=== PATIENT | male | born 1950 | race Caucasian/White ===

== ENCOUNTER 2019-08-22 12:35 | Inpatient (IN) | payer MEDICARE, SELFPAY ==
[2019-07-21 10:41] VITALS: BP 165/80; PULSE 65; RESP 18; TEMP 36.6; O2SAT 96; BMI 30.7
[2019-08-22] VITALS (11 sets, daily range): BP systolic 96–133; BP diastolic 58–80; PULSE 54–93; RESP 12–18; TEMP 36.2–36.7; O2SAT 90–98; BMI 30.7
--- NOTE | ~2019-08-22 | XR_ITS ---
EXAMINATION: XR shoulder RT min 2V DATE: 08/22/2019 11:37 INDICATION: Total right shoulder arthroplasty. Postop. TECHNIQUE: 3 views of right shoulder were obtained. COMPARISON: Right shoulder radiographs 06/12/2019 FINDINGS: There is a total right shoulder arthroplasty in near-anatomic alignment. No fracture. There is moderate osteoarthritis of the acromioclavicular joint. IMPRESSION: 1. Total right shoulder arthroplasty in near-anatomic alignment. Reviewed, dictated and finalized at location A. RAL LAB TECHNICIAN
[2019-08-22] MEDS: LACTATED RINGERS 1,000 ML 30 ML IV CONT ×2 (06:55→11:21)
[2019-08-22 07:00] LABS: Glucose Point of Care 109 (65-105)
--- NOTE | 2019-08-22 07:09 | P.PNAN_ITS ---
Anes - Initial Pre Proc Eval Procedure: Operation Date: 08/22/19 07:30 Proposed Procedures p Right Anatomic Total Shoulder Arthroplasty - Roni Ch MD Date/Time: 08/22/19 07:09 Surgeon: Roni Ch MD Pre Op Diagnosis: Right Shoulder OA Patient Data Age: 68 Gender: M Height: 1.75 m Weight: 94.3 kg Last Vital Signs Temp 36.6 C 07/21/19 10:41 Pulse 65 07/21/19 10:41 Resp 18 07/21/19 10:41 BP 165/80 H 07/21/19 10:41 Pulse Ox 96 07/21/19 10:41 Allergies Allergy/AdvReac Type Severity Reaction Status Date / Time amoxicillin Allergy Mild Rash Verified 07/21/19 10:35 Penicillins Allergy Mild Rash Verified 07/21/19 10:35 Sulfa (Sulfonamide Allergy Mild UNKNOWN Unverified 07/21/19 10:35 Antibiotics) Home Medications Medication Instructions Recorded Confirmed Type allopurinol 100 mg tablet 100 mg PO DAILY 06/12/19 08/07/19 History hydrochlorothiazide 12.5 mg capsule 12.5 mg PO DAILY 06/12/19 08/07/19 History metoprolol succinate 25 mg capsule 12.5 mg PO DAILY 06/12/19 08/07/19 History sprinkle, ext. release 24 hr nifedipine 60 mg tablet,extended 60 mg PO DAILY 06/12/19 08/07/19 History release spironolactone 25 mg tablet 25 mg PO DAILY 06/12/19 08/07/19 History trazodone 50 mg tablet 50 mg PO HS 06/12/19 08/07/19 History ascorbic acid (vitamin C) 500 mg PO DAILY 07/21/19 08/07/19 History cetirizine 5 mg PO DAILY 07/21/19 08/07/19 History gabapentin 100 mg PO HS 07/21/19 08/07/19 History lihnemlf-xkb-DF-lycopen-lutein 1 tablet PO DAILY 07/21/19 08/07/19 History [Centrum Silver Men] omega 3-jsx-qys-fish oil [EPA-DHA 1 cap PO DAILY 07/21/19 08/07/19 History 720] Laboratory Tests 08/22/19 06:56 POC Capillary Glucose 109 mg/dl mg/dl (65-105) Patient hx anesthesia problems: none Family hx anesthesia problems: none [facility] Past Medical History Medical History (Updated 08/22/19 @ 07:13 by Abdiel Nunez MD) Asthma CKD (chronic kidney disease) stage 4, GFR 15-29 ml/min Diabetes Gout Obesity SAMRA on CPAP Osteoarthritis of right shoulder Social History Social History Smoking status: Never smoker Alcohol intake: current Gender identity (if verbalized by the patient): Male Anes - Eval Final PreProcedure Day of Procedure 08/22/19 07:09 Patient weight: obese Heart: regular rate and rhythm Lungs: clear to auscultation and normal air movement Airway: Mallampati scale class II Neurological: alert and oriented Last oral intake: >/= 8 hours ASA classification: III Emergent: no Anesthetic plan: proceed Anesthesia type and monitoring: general LMA and ETT Informed Consent: The patient's anesthetic plan and its attendant risks and benefits were discussed with the patient/family/POA. Questions were solicited and answers provided to the satisfaction of the patient/family/POA.
--- NOTE | 2019-08-22 07:14 | WPDANESPNB ---
Anes - Peripheral Nerve Block Date/Time: 08/22/19 07:14 I have discussed with the patient/family/POA the placement of a peripheral nerve block for post-operative pain management, including associated risks, benefits, complications, and side effects. Alternative methods of post-operative analgesia were detailed. Questions were solicited and answers provided to the satisfaction of the patient/family/POA. Time-Out: A pre-procedural Time-Out was completed immediately before starting the procedure and confirmed: Patient Identification, Site, Procedure, Patient Position and the Availability of Requisite Equipment. Clinical Indications: Acute post-operative pain management requested by the operative surgeon. Nerve Block Insertion Note Anes-nerve block: supraclavicular right Patient position: supine Skin prep: chlorhexidine Needle: 22 gauge, stimulating, insulated echogenic needle. Needle length: 80 mm Technique: ultrasound (in plane) Injectate: bupivacaine 0.5% with epi 5 mcg/ml (20cc) Observations: tolerated well Complications: none Procedure start time:: 725 Procedure end time:: 730
--- NOTE | 2019-08-22 07:20 | WPDHPUPDATE1 ---
History and Physical Update Update Date/Time: 08/22/19 07:20 History and Physical has been reviewed, including an updated exam of the patient. There are NO changes in the patient's condition. Risks, benefits, and alternatives have been discussed and questions answered. Patient agrees to proceed with procedure.
[2019-08-22] MEDS: ceFAZolin 2 GM/D5W 50 ML 2 GM/50 ML BAG IVPB (07:34)
[2019-08-22] MEDS: HYDROGEN PEROXIDE 3% SOLN(*SP) 473 ML BOTTLE 50 ML IRRIGATION (10:47)
[2019-08-22 11:43] LABS: Glucose Point of Care 196 (65-105)
--- NOTE | 2019-08-22 11:58 | PM.PROC ---
Procedure Note - Detailed Date of procedure: 08/22/19 Pre-op diagnosis: Right Shoulder OA Post-op diagnosis: same Procedure performed: Right anatomic total shoulder arthroplasty. Lesser tuberosity osteotomy. Biceps tenodesis. Description of procedure: Simplicity stemless implant. Lesser tuberosity osteotomy and osteotomy repair. Biceps tenodesis. Implants: [employer] Simpliciti humeral nucleus size 3, and head size 52 x 21 Shoulder Innovations, Glenoid circular in-line peg 24 x 6 millimeter glenoid component. Anesthesia: GETA Surgeon: Roni Ch MD Estimated blood loss (mL): 100 Pathology: none sent Complications: No immediate complications Condition: stable Disposition: PACU Findings: The patient was given an interscalene block in the preoperative area. Preoperative antibiotics were given. The patient was transferred to the operating room and a general anesthetic was administered. The beach chair position was used at 40 degrees. All bony prominences were padded. The head was carefully stabilized on the Grajeda heading and priming tool setter. A sterile prep and drape was performed in the usual manner with Chloraprep. A longitudinal incision was created at the anterior shoulder just lateral to the deltopectoral interval. Careful dissection was performed to expose the interval and protect the cephalic vein. The vein required suture ligation. The upper border of the pectoralis was released. There was an anomalous muscle running from proximal to distal over the front of the distal subscapularis tendon. It was over the area where typically the 3 sisters would be found. It required transection. The biceps was tenodesed. A lesser tuberosity osteotomy was performed after opening the joint capsule at the rotator interval. The dimensions of the bone were carefully considered. A 1 inch straight osteotome was used to start the osteotomy. It was finished with a curved osteotome. It was tagged for later repair. The inferior capsule was released, exposing the humeral head. Osteophytes were removed. Care was taken to stay on bone to protect the axillary nerve. The anatomic head cut was taken with the oscillating saw. The trials were use to assess the appropriate size implant. The center guide pin was placed and the planer used, followed by the 1st drill. The Blaze was inserted. The cut protector was placed, and attention was turned to the glenoid. Retractors were placed. Releases were carried out for exposure. The subscapularis was mobilized, the inferior capsule and long head of triceps released, and the superior and middle glenohumeral ligaments released as well. Labral tissue was resected. The sizing template was used and a guide pin was placed. Approximately 5 degreesdeformity correction was performed]. The reamer was placed over the guide pin taken down to create a 2-4 millimeter wall. The peg drill guide was applied and the pegs drilled. The trial component was placed and fit very nicely. Excellent stability was confirmed. The real component was cemented into position. Excess cement was carefully removed. The humerus was prepared for subscapularis repair with the drilling and passage of 4 suture leaders. The trial was checked for proper soft tissue balance, then the real humeral nucleus and head were impacted into position. The shoulder was copiously irrigated periodically with pulsatile lavage. The shoulder was reduced and the subscapularis repaired with number 5 Ethibond suture modified Martin-Phill sutures, #2 suture tape, and reinforced with number 2 Ethibond suture. The rotator interval was reapproximated distally. The pectoralis tendon was repaired using #2 Ethibond suture. The deltopectoral space was reapproximated with 2-0 Vicryl. The remaining tissue was closed with 0 Quill and 2-0 Quill running suture and steri-strips. A sterile dressing and shoulder immobilizer was placed. The patient was transferred to the recovery room.
--- NOTE | 2019-08-22 12:17 | SUR.PHASEI ---
5701 sbar faxed to floor. family updated and sent to room
--- NOTE | 2019-08-22 12:43 | ADMGEN ---
This patient, Sundeep Coy, was admitted to [facility] Surg Room 309-01. Patient/family oriented to hospital policies and general routines including ID bracelet, bed and alarms, visiting hours, pain management, procedures, bathroom and other care routines, personal items, smoking policy, room service/diet, and visiting hours. Valuables list has been completed. Information on how to activate the Rapid Response Team has been discussed. Patient/Family are encouraged to report perceived risks to care and to ask questions if they do not understand what they are told or what they should do.
--- NOTE | 2019-08-22 14:18 | SUR.PHASEI ---
1130 radiology at bedside to do xray
[2019-08-22] MEDS: DOCUSATE SODIUM 100 MG CAPSULE PO (17:55)
[2019-08-22] MEDS: GABAPENTIN 100 MG CAPSULE PO (20:03)
[2019-08-22] MEDS: TRAZODONE HCL 50 MG TABLET PO (20:03)
[2019-08-22 23:28] LABS: Glucose Point of Care 162 (65-105)
[2019-08-23 02:00] VITALS: BP 132/64; PULSE 72; RESP 18; TEMP 36.9; O2SAT 97
--- NOTE | 2019-08-23 02:23 | PM.IMCN ---
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 I have placed orders for sliding scale insulin and Accu-Cheks. And the patient's diet has been changed to consistent carbohydrate diet. He is afraid to take the glimepiride that he was recently started on if his creatinine is above his baseline of 2.4 I have tried to reassure the patient that if his creatinine is stable he should be able to continue his once daily glimepiride at least until he sees a mechanical manufacturing technician. (3) CKD (chronic kidney disease) stage 4, GFR 15-29 ml/min: Code(s): N18.4 - Chronic kidney disease, stage 4 (severe) Status: Acute Assessment and Plan: Continue to avoid nephrotoxic medications.Check BMP in a.m.. The patient reports that his preop creatinine was higher than baseline. Will repeat a BMP in a.m.. If the patient's creatinine is at her near baseline have told him he can continue glimepiride. HPI Data of Consult Consult date: 08/23/19 Requesting Physician: Roni Ch MD Primary Care Provider: Shaun Parham, Consult Narrative Narrative: Date and time of patient contact: 08/23/2019 at 3:10 a.m. Sundeep Coy is a 68 year old male with a past medical history of asthma, type 2 diabetes mellitus and stage 4 chronic kidney disease who presented to the hospital for planned right anatomic shoulder arthroplasty performed by Dr. Roni Ch. Patient underwent shoulder surgery on 08/22/2019 without difficulty. He received general endotracheal anesthesia and a peripheral nerve block. The patient had aching and throbbing severe right shoulder pain that was interfering with his activities of daily lifting. He is having difficulty reaching for objects and was having difficulty sleeping. He had been struggling with pain in the shoulder for 20 years. He reports that his pain is currently manageable. He reports the nerve block seems to have worn off. He only took half of his glimepiride dose the night prior to surgery. His glucose this evening was 162. He states his hemoglobin A1c is been a little bit over 7 for the last 2 lab draws. 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 But his primary doctor started him on glimepiride recently. He was prescribed glimepiride 1 tablet p.o. b.i.d. but he has only been taking it daily. With admit taking it daily his fasting glucose has been 90. His chronic kidney disease was due to uncontrolled hypertension that is now well controlled since he was initiated on spironolactone. He reports that his baseline creatinine is 2.4. The value of 2.7 on July 21 is higher than what he would expect. However he states it is possible that he may have been a little bit dehydrated on the day of the lab draw. He denies any dysuria or changes in urinary frequency. Does have intermittent constipation. He had a bowel movement before coming to the hospital. He has not had any nausea following surgery. He anticipates going home today. The patient reports he has had a mild cough since surgery but it is a dry cough. He states that his throat is a little bit irritated. He does have mild asthma but do
[2019-08-23 05:58] VITALS: BP 146/74; PULSE 74; RESP 18; TEMP 36.8; O2SAT 95
[2019-08-23 06:20] LABS: Blood Urea Nitrogen 43 mg/dL (9-20); Calcium 9.1 mg/dL (8.4-10.2); Carbon Dioxide 23 mmol/L (22-30); Chloride 103 mmol/L (98-107); Estimated CRCL calculation 27 ml/min; Estimated Glomerular Filt Rate 24; Glucose 108 mg/dL (75-110); Potassium 4.1 mmol/L (3.4-5.0); Sodium 138 mmol/L (137-145)
[2019-08-23] MEDS: GLIMEPIRIDE 1 MG TABLET PO (08:05)
[2019-08-23 08:07] LABS: Glucose Point of Care 104 (65-105)
[2019-08-23] MEDS: NIFEdipine 30 MG TAB.ER.24 60 MG PO (08:07)
[2019-08-23] MEDS: allopurinoL 100 MG TABLET PO (08:08)
[2019-08-23] MEDS: OPTI-GEN TAB 1 TABLET PO (08:08)
[2019-08-23] MEDS: ASCORBIC ACID 500 MG TABLET PO (08:09)
[2019-08-23] MEDS: SPIRONOLACTONE 25 MG TABLET PO (08:09)
[2019-08-23 08:10] VITALS: PULSE 78
[2019-08-23] MEDS: hydroCHLOROthiazide 12.5 MG CAPSULE PO (08:10)
[2019-08-23] MEDS: METOPROLOL SUCCINATE EXT REL 12.5 MG TABCR PO (08:10)
[2019-08-23] MEDS: DOCUSATE SODIUM 100 MG CAPSULE PO (08:10)
[2019-08-23 10:04] VITALS: O2SAT 95
[2019-08-23 12:01] LABS: Glucose Point of Care 107 (65-105)
--- NOTE | 2019-08-23 13:13 | PM.DS ---
DS: Diagnosis Admitting Diagnosis Admitting Diagnosis: Primary osteoarthritis, right shoulder Discharge Diagnosis (1) Status post total replacement of right shoulder: Code(s): Z96.611 - Presence of right artificial shoulder joint Status: Acute DS: Summary Hospital Course Reason for hospitalization: Anatomic total shoulder arthroplasty. Hospital Course: Tolerated surgery well. Progressed appropriately with therapy. Status at Discharge Functional status at discharge: independent ambulation Time Spent with Patient Time attestation: Total time spent providing and/or coordinating discharge services: Time spent: Less than 30 minutes Exam Const: General: no acute distress Resp: Effort & Inspection: normal respiratory effort Skin: Other: Wound healing well. Mepilex dressing intact. No hematoma or drainage. Neuro: Motor exam (neuro): 5/5 motor strength present throughout Sensory Exam: normal sensation Psych: Mental Status: mental status grossly normal Speech and movement: Normal speech and movement present DS: Data Data Completed and Pending Labs on day of discharge: Labs from last 24 hours 08/23/19 08/23/19 08/23/19 11:55 07:59 05:20 Sodium 138 Potassium 4.1 Chloride 103 Carbon Dioxide 23 BUN 43 H Creatinine 2.70 H Estim Creat Clear Calc 27 Estimated GFR 24 L Glucose 108 POC Capillary Glucose 107 104 Calcium 9.1 08/22/19 23:07 Sodium Potassium Chloride Carbon Dioxide BUN Creatinine Estim Creat Clear Calc Estimated GFR Glucose POC Capillary Glucose 162 H Calcium Discharge Plan Discharge Attending physician on discharge: Roni Ch Consulting providers: Lucy De La Torre Discharging Clinician: Roni Ch Patient Disposition: Home, Self-Care Activity: october shower Diet: as tolerated Wound Care Instructions: follow printed instructions Discharge Instructions: See instruction sheet. Patient Instructions: Antibiotic Form, Pain Management (DC), Shoulder Arthroplasty (DC) Stand Alone Forms: General Discharge Information Follow-up/Referrals: Roni Ch MD [Physician] - Discharge Medications: New oxycodone-acetaminophen 5-325 mg tablet 1 - 2 tablet PO Q4-6H MDD 8 tablets PRN (Reason: pain) Qty: 40 RF: 0 Continued trazodone 50 mg tablet 50 mg PO HS RF: 0 allopurinol 100 mg tablet 100 mg PO DAILY RF: 0 hydrochlorothiazide 12.5 mg capsule 12.5 mg PO DAILY RF: 0 metoprolol succinate 25 mg capsule,sprinkle,ER 24hr 12.5 mg PO DAILY RF: 0 nifedipine 60 mg tablet extended release 60 mg PO DAILY RF: 0 spironolactone 25 mg tablet 25 mg PO DAILY RF: 0 cetirizine 10 mg Tablet 10 mg PO DAILY PRN (Reason: Allergy Symptoms) RF: 0 gabapentin 100 mg Capsule 300 mg PO HS RF: 0 ascorbic acid (vitamin C) 500 mg Tablet 500 mg PO DAILY RF: 0 EPA-DHA 720 290-430-1.4 mg-mg-gram Capsule 1 cap PO DAILY RF: 0 Centrum Silver Men 300-600-300 mcg Tablet 1 tablet PO DAILY RF: 0 glimepiride 1 mg Tablet 1 mg PO DAILY RF: 0 Date of admission: 08/22/19 12:35 Primary Care Provider: Dione,Shaun Long Admitting Provider: Roni Ch Attending physician on admission: Roni Ch
--- NOTE | 2019-08-23 13:56 | WPDANESPN ---
Anes - Prog Note Post-Op Date/Time: 08/23/19 13:56 Cardiovascular status: normal Respiratory status: normal Airway patency: baseline Mental status: baseline Post-Op hydration status: normal Vital Signs: Last Vital Signs Temp 36.8 C 08/23/19 05:58 Pulse 78 08/23/19 08:10 Resp 18 08/23/19 05:58 BP 146/74 H 08/23/19 05:58 Pulse Ox 95 08/23/19 10:04 Pain Score (VAS): 0/10. Patient resting in bedside chair at time of assessment, appears comfortable. Support person at bedside. I/O: Intake & Output 08/22/19 08/23/19 08/23/19 23:59 07:59 15:59 Intake Total 490 400 600 Output Total 900 Balance 490 -500 600 Laboratory Tests 08/23/19 05:20 08/22/19 08/23/19 08/23/19 23:07 05:20 07:59 Sodium 138 Potassium 4.1 Chloride 103 Carbon Dioxide 23 BUN 43 H Creatinine 2.70 H Estim Creat Clear Calc 27 Estimated GFR 24 L Glucose 108 POC Capillary Glucose 162 H 104 Calcium 9.1 08/23/19 11:55 Sodium Potassium Chloride Carbon Dioxide BUN Creatinine Estim Creat Clear Calc Estimated GFR Glucose POC Capillary Glucose 107 Calcium Post-procedural complaints: none Patient Feedback: Patient satisfied with anesthetic care.
== END 2019-08-23 14:40 | disposition home or self-care (01) | DRG 483 ==
LOC: ANH3MEDSUR 12:38
PROVIDERS: Internal Medicine; Admitting Provider Orthopaedic Surgery; PCP Internal Medicine; Visit Provider Orthopaedic Surgery
PROC: 0RRJ0JZ Replacement of Right Shoulder Joint with Synthetic Substitute, Open Approach (ICD-10-PCS; CPT 23472; principal; 2019-08-22 07:30)
DX: M19.011 Primary osteoarthritis, right shoulder (principal); N18.4 Chronic kidney disease, stage 4 (severe); Z28.21 Immunization not carried out because of patient refusal; E66.9 Obesity, unspecified; E11.22 Type 2 diabetes mellitus with diabetic chronic kidney disease; J45.909 Unspecified asthma, uncomplicated; E11.36 Type 2 diabetes mellitus with diabetic cataract; H26.9 Unspecified cataract; Z68.30 Body mass index [BMI] 30.0-30.9, adult; E78.2 Mixed hyperlipidemia; M10.9 Gout, unspecified; G47.33 Obstructive sleep apnea (adult) (pediatric); L80 Vitiligo
CPT/HCPCS: 36415; 73030; 80048; 86850; 86900; 86901; 97110; 97116; 97161; 97165; A4565; A9270; C1713; C1776; J0131; J0171; J0690; J1100; J1885; J2250; J2270; J2405; J2704; J2795; J3010; J7120

== ENCOUNTER 2020-05-03 00:45 | Outpatient (CLI) | payer MEDICARE, SELFPAY ==
[2020-05-03 20:27] LABS: SARS-CoV-2 RNA PCR Negative
== END 2020-05-03 00:46 | disposition home or self-care (01) ==
LOC: ANHCOVIDDT 00:45
PROVIDERS: PCP Internal Medicine; Visit Provider Internal Medicine Gastroenterology
DX: Z01.812 Encounter for preprocedural laboratory examination (principal); Z20.828 Contact with and (suspected) exposure to other viral communicable diseases
CPT/HCPCS: 87635; C9803; U0003

== ENCOUNTER 2020-05-06 01:09 | Day surgery (SDC) | payer MEDICARE, SELFPAY ==
[2020-04-30 11:20] VITALS: BMI 30.2
--- NOTE | 2020-05-06 09:53 | WPDGICN ---
Assessment and Plan Assessment and plan (1) Encounter for screening colonoscopy: Code(s): Z12.11 - Encounter for screening for malignant neoplasm of colon Status: Acute Assessment and Plan: Screening colonoscopy will be performed because of patient's age. Further recommendations subsequently. (2) Epigastric abdominal pain: Code(s): R10.13 - Epigastric pain Status: Acute Assessment and Plan: Because of patient's epigastric pain plan is to continue proton pump inhibitor. [place] diet is advised. An EGD will be performed. GI Consult Note Consult date/time: 05/06/20 09:53 HPI: Sundeep Coy is a 69 year old male Seen in evaluation at the request of Dr. Parham. patient presents for neoplasia screening. He states he has soft stools occasionally normal denies any pain or bleeding. His family history is Noncontributory. Patient also complains of epigastric pain described as burning pain not related to diet. Somewhat better with antacids. He has noticed some improvement since starting Prilosec 20 mg p.o. daily over the last 2-3 weeks. He denies any weight loss or dysphagia. He desires evaluation with EGD. Review of Systems Review of Systems: All systems reviewed & are unremarkable except as noted in HPI and below PMFSH Past Medical History Medical History (Updated 05/06/20 @ 09:55 by Deshawn Romero MD) Asthma Cataracts, bilateral CKD (chronic kidney disease) stage 4, GFR 15-29 ml/min Diabetes Essential (primary) hypertension Gout Mixed hyperlipidemia Obesity SAMRA on CPAP Osteoarthritis of right shoulder Vitiligo Surgical History Surgical History (Updated 02/07/20 @ 13:19 by ROS Encinas) History of lithotripsy Status post total replacement of right shoulder (~08/22/19) Anatomic Family History Family History (Updated 08/23/19 @ 04:18 by Kiki Chavez DO) Father Hypertension Dementia Parkinsons disease TIA (transient ischemic attack) Stomach ulcer Sibling Breast cancer Sister and maternal aunt Other Carcinoma of colon Uncle with colon cancer Social History Social History (Updated 08/23/19 @ 04:17 by Kiki Chavez DO) Social History: Primary care physician: Dr. 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 release 24 hr nifedipine 60 mg tablet,extended 60 mg PO DAILY 06/12/19 04/30/20 History release spironolactone 25 mg tablet 25 mg PO DAILY 06/12/19 04/30/20 History trazodone 50 mg tablet 50 mg PO HS 06/12/19 04/30/20 History Centrum Silver Men 1 tablet PO DAILY 07/21/19 04/30/20 History ascorbic acid (vitamin C) 500 mg PO DAILY 07/21/19 04/30/20 History cetirizine 10 mg PO DAILY 07/21/19 04/30/20 History gabapentin 300 mg PO HS 07/21/19 04/30/20 History glimepiride 0.5 mg PO DAILY 08/22/19 04/30/20 History cholecalciferol (vitamin D3) 125 mcg PO DAILY 04/30/20 04/30/20 History [Vitamin D3] levothyroxine 75 mcg PO DAILY 04/30/20 04/30/20 History omeprazole 20 mg PO HS 04/30/20 04/30/20 History Allergies Allergy/AdvReac Type Severity Reaction Status Date / Time ampicillin Allergy Intermediate Rash Verified 04/30/20 11:46 Penicillins Allergy Intermediate Rash Verified 04/30/20 11:46 Ex
[2020-05-06 09:54] LABS: Glucose Point of Care 103 (65-105)
[2020-05-06] MEDS: LACTATED RINGERS 1,000 ML 150 ML IV CONT (09:57)
[2020-05-06 10:00] VITALS: BP 173/74; PULSE 68; RESP 18; TEMP 36.8; O2SAT 97; BMI 30.7
--- NOTE | 2020-05-06 11:04 | WPDANESEPPF ---
Anes - Initial Pre Proc Eval Procedure: Operation Date: 05/06/20 10:30 Proposed Procedures p Esophagogastroduodenoscopy & Colonoscopy - Deshawn Romero MD Date/Time: 05/06/20 11:04 Surgeon: Deshawn Romero MD Pre Op Diagnosis: Diarrhea/ Epigastric Pain Patient Data Age: 69 Gender: M Height: 5 ft 9 in Weight: 94.3 kg Last Vital Signs Temp 36.8 C 05/06/20 10:00 Pulse 68 05/06/20 10:00 Resp 18 05/06/20 10:00 BP 173/74 H 05/06/20 10:00 Pulse Ox 97 05/06/20 10:00 Allergies Allergy/AdvReac Type Severity Reaction Status Date / Time ampicillin Allergy Intermediate Rash Verified 04/30/20 11:46 Penicillins Allergy Intermediate Rash Verified 04/30/20 11:46 Home Medications Medication Instructions Recorded Confirmed Type allopurinol 100 mg tablet 100 mg PO DAILY 06/12/19 04/30/20 History hydrochlorothiazide 12.5 mg capsule 12.5 mg PO DAILY 06/12/19 04/30/20 History metoprolol succinate 25 mg capsule 25 mg PO DAILY 06/12/19 04/30/20 History sprinkle, ext. release 24 hr nifedipine 60 mg tablet,extended 60 mg PO DAILY 06/12/19 04/30/20 History release spironolactone 25 mg tablet 25 mg PO DAILY 06/12/19 04/30/20 History trazodone 50 mg tablet 50 mg PO HS 06/12/19 04/30/20 History Centrum Silver Men 1 tablet PO DAILY 07/21/19 04/30/20 History ascorbic acid (vitamin C) 500 mg PO DAILY 07/21/19 04/30/20 History cetirizine 10 mg PO DAILY 07/21/19 04/30/20 History gabapentin 300 mg PO HS 07/21/19 04/30/20 History glimepiride 0.5 mg PO DAILY 08/22/19 04/30/20 History cholecalciferol (vitamin D3) 125 mcg PO DAILY 04/30/20 04/30/20 History [Vitamin D3] levothyroxine 75 mcg PO DAILY 04/30/20 04/30/20 History omeprazole 20 mg PO HS 04/30/20 04/30/20 History Laboratory Tests 05/06/20 09:52 POC Capillary Glucose 103 mg/dl mg/dl (65-105) Patient hx anesthesia problems: post op nausea/vomiting Family hx anesthesia problems: none PMFSH Past Medical History Medical History Asthma Cataracts, bilateral CKD (chronic kidney disease) stage 4, GFR 15-29 ml/min Diabetes Essential (primary) hypertension Gout Mixed hyperlipidemia Obesity SAMRA on CPAP Osteoarthritis of right shoulder Vitiligo Surgical History Surgical History History of lithotripsy Status post total replacement of right shoulder (~08/22/19) Anatomic Family History Family History Father Hypertension Dementia Parkinsons disease TIA (transient ischemic attack) Stomach ulcer Sibling Breast cancer Sister and maternal aunt Other Carcinoma of colon Uncle with colon cancer Social History Social History Social History: Primary care physician: Dr. 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 Gender identity (if verbalized by the patient): Male Spiritual care concerns: No Agree to blood products: Yes Anes - Eval Final PreProcedure Day of Procedure 05/06/20 11:04 Patient weight: obese Heart: regular rate and rhythm Lungs: clear to auscultation Airway: Mallampati scale class II Neurological: alert and oriented Last oral intake: >/= 8 hours ASA classification: III Emergent: no Anesthetic plan: proceed Anesthesia type and monitoring: general GIVS and standard monitoring Informed Consent: The patient's anesthetic plan and its attendant risks and benefits were discussed with the patient/family/POA. Questions were solicited and answers provided to the satisfaction of the patient/family/POA.
[2020-05-06 11:26] VITALS: BP 131/72; PULSE 56; RESP 18; O2SAT 98
[2020-05-06 11:36] VITALS: BP 126/67; PULSE 61; RESP 26; O2SAT 98
--- NOTE | 2020-05-06 11:41 | SUR.OPER ---
EGD START 1109, END 1111 COLONOSCOPY START 1115, END 1124
[2020-05-06 11:56] VITALS: BP 146/74; PULSE 61; RESP 26; O2SAT 98
== END 2020-05-06 12:19 | disposition home or self-care (01) ==
PROVIDERS: PCP Internal Medicine; Visit Provider Internal Medicine Gastroenterology
PROC: 0DJ08ZZ Inspection of Upper Intestinal Tract, Via Natural or Artificial Opening Endoscopic (ICD-10-PCS; CPT 43235; principal; 2020-05-06 10:30)
DX: Z12.11 Encounter for screening for malignant neoplasm of colon (principal); R10.13 Epigastric pain; I12.9 Hypertensive chronic kidney disease with stage 1 through stage 4 chronic kidney disease, or unspecified chronic kidney disease; E11.22 Type 2 diabetes mellitus with diabetic chronic kidney disease; N18.4 Chronic kidney disease, stage 4 (severe); J45.909 Unspecified asthma, uncomplicated; E78.5 Hyperlipidemia, unspecified; M10.9 Gout, unspecified; E66.9 Obesity, unspecified; L80 Vitiligo; Z96.611 Presence of right artificial shoulder joint; Q39.4 Esophageal web; K64.8 Other hemorrhoids
CPT/HCPCS: 43239; 43450; G0121; 87081; J2704; J3370; J7120

== ENCOUNTER → 2021-05-09 03:46 | Outpatient (CLI) | payer MEDICARE, SELFPAY ==
[2021-05-09 18:10] LABS: SARS-CoV-2 RNA PCR Positive
== END ==
PROVIDERS: PCP Internal Medicine; Visit Provider Internal Medicine
DX: U07.1 COVID-19 (principal)
CPT/HCPCS: C9803; U0003; U0005

== ENCOUNTER 2023-06-25 07:30 | Outpatient (CLI) | payer MEDICARE, SELFPAY ==
--- NOTE | ~2023-06-25 | MR_ITS ---
EXAMINATION: MR MRCP wo/w con/w 3D wo ind DATE: 06/25/2023 09:03 INDICATION: Follow-up pancreatic masses TECHNIQUE: Magnetic resonance imaging (MRI) of the abdomen was performed without and with intravenous contrast. Sequences included coronal T2-weighted SS-FSE ARC, coronal T2-weighted FS SS-FSE, coronal T2-weighted 2D FS FIESTA, Water:Coronal LAVA-Flex, sagittal T2-weighted SS-FSE ARC, axial SSFSE ARC, axial 3D DualEcho, axial DWI B=600, axial T1-weighted LAVA, FAT:Coronal LAVA-Flex, and coronal in and opposed phase LAVA-Flex. Thick-slab T2-weighted FRFSE-XL images were obtained for magnetic resonance cholangiopancreatography (MRCP). Maximum intensity projection 3-D reconstructions of the volumetric data were created by the technologist. Postcontrast sequences included a time course of axial T1-weig hted LAVA, FAT:Coronal LAVA-Flex, coronal in and opposed phase LAVA-Flex, and Water:Coronal LAVA-Flex . COMPARISON: None. CONTRAST: Multihance, 16 cc FINDINGS: ABDOMEN MRI: The liver, spleen, and adrenal glands are normal. There is moderate atrophy of the kidne ys. There appears to be a small amount of debris in the gallbladder. There is a 2.1 x 2.0 cm cystic l esion in the uncinate process of the pancreas which contains multiple thin internal septations. No ab normal internal enhancement is identified. There is a 1.5 cm cystic lesion in the head of the pancrea s with thin internal septations and no definite abnormal enhancement after contrast administration. T here is a 1.9 cm simple cystic lesion in the body of the pancreas which appears to connect to the mauricio n pancreatic duct. There is a smaller adjacent 6 mm cystic lesion in the body of the pancreas without definite communication with the main pancreatic duct. There is a 7 mm cystic lesion in the tail of t he pancreas without definite communication with the main pancreatic duct. There are no pathologically enlarged abdominal lymph nodes. A right pelvic transplant kidney is noted. There are no dilated loop s of bowel. ABDOMEN MRCP: The pancreatic duct is normal in course and caliber. No intrahepatic or extrahepatic bi liary dilatation. No stones or stricture of the common bile duct are identified. IMPRESSION: 1. Multiple cystic lesions of the pancreas as described above. The differential diagnosis includes ps eudocyst, intraductal papillary mucinous neoplasm (IPMN), mucinous cystic neoplasm (MCN), and the les s common serous cystadenoma and neuroendocrine tumor. Correlate for history of pancreatitis. Comparis on with any available prior imaging would be helpful to determine stability. Based on this study jesus zambrano, EUS/FNA would be recommended for the lesion in the uncinate process. Reviewed, dictated and finalized at location B. ITATIVE RESEARCHER IMPRESSION: 1. Multiple cystic lesions of the pancreas as described above. The differential diagnosis includes pseudocyst, intraductal papillary mucinous neoplasm (IPMN), mucinous cystic neoplasm (MCN), and the less common serous cystadenoma and columba roendocrine tumor. Correlate for history of pancreatitis. Comparison with any a vailable prior imaging would be helpful to determine stability. Based on this s tudy alone, EUS/FNA would be recommended for the lesion in the uncinate process .
== END 2023-06-25 07:31 | disposition home or self-care (01) ==
PROVIDERS: PCP Internal Medicine; Visit Provider Nurse Practitioner
DX: K86.2 Cyst of pancreas (principal); R74.8 Abnormal levels of other serum enzymes
CPT/HCPCS: 74183; 76376; A9577

== ENCOUNTER 2023-07-21 02:14 | Day surgery (SDC) | payer MEDICARE, SELFPAY ==
[2023-06-30 09:12] VITALS: BMI 26.2
--- NOTE | 2023-07-19 09:44 | SUR.PREOP ---
Patient called regarding upcoming procedure. Message left on pt's voicemail regarding appointment times.
[2023-07-21 07:31] VITALS: BP 145/72; PULSE 56; RESP 18; TEMP 36.3; O2SAT 98
[2023-07-21] MEDS: LACTATED RINGERS 1,000 ML 150 ML IV CONT (07:41)
[2023-07-21 07:46] LABS: Glucose Point of Care 125 mg/dl (65-105)
--- NOTE | 2023-07-21 07:49 | WPDANESEPPF ---
Anes - Initial Pre Proc Eval Procedure: Operation Date: 07/21/23 08:30 Proposed Procedures p Esophagogastroduodenoscopy - Gutierrez Gan MD Date/Time: 07/21/23 07:49 Surgeon: Gutierrez Gan MD Pre Op Diagnosis: epigastric pain, anorexia Patient Data Age: 72 Gender: M Height: 1.75 m Weight: 84 kg Last Vital Signs Temp 97.3 F L 07/21/23 07:31 Pulse 56 L 07/21/23 07:31 Resp 18 07/21/23 07:31 BP 145/72 H 07/21/23 07:31 Pulse Ox 98 07/21/23 07:31 O2 Del Method Room Air 07/21/23 07:31 Allergies Allergy/AdvReac Type Severity Reaction Status Date / Time ampicillin Allergy Intermediate Rash Verified 07/21/23 07:30 Penicillins Allergy Intermediate Rash Verified 07/21/23 07:30 Home Medications Medication Instructions Recorded Confirmed Type metoprolol succinate 25 mg capsule 25 mg PO DAILY 06/12/19 06/30/23 History sprinkle, ext. release 24 hr nifedipine 60 mg tablet,extended 60 mg PO DAILY 06/12/19 06/30/23 History release trazodone 50 mg tablet 50 mg PO HS 06/12/19 06/30/23 History ascorbic acid (vitamin C) 500 mg 500 mg PO DAILY 07/21/19 06/30/23 History tablet cetirizine 10 mg tablet 10 mg PO DAILY 07/21/19 06/30/23 History [id number] 300 mcg-K 60 1 tablet PO DAILY 07/21/19 06/30/23 History mcg-lycop 600 mcg-lutein 300 mcg tablet (Centrum Silver Men) cholecalciferol (vitamin D3) 125 125 mcg PO DAILY 04/30/20 06/30/23 History mcg (5,000 unit) tablet (Vitamin D3) levothyroxine 75 mcg tablet 75 mcg PO DAILY 04/30/20 06/30/23 History aspirin 81 mg tablet,delayed 81 mg PO DAILY 06/30/23 06/30/23 History release atorvastatin 20 mg tablet 20 mg PO DAILY 06/30/23 06/30/23 History pantoprazole 40 mg tablet,delayed 40 mg PO DAILY 06/30/23 06/30/23 History release prednisone 5 mg tablet 5 mg PO DAILY 06/30/23 06/30/23 History tacrolimus 0.75 mg tablet,extended 0.75 mg PO DAILY 06/30/23 07/21/23 History release 24 hr (Envarsus XR) tamsulosin 0.4 mg capsule 0.4 mg PO DAILY 06/30/23 06/30/23 History valganciclovir 450 mg tablet 450 mg PO DAILY 06/30/23 06/30/23 History (Valcyte) Laboratory Tests 07/21/23 07:40 POC Capillary Glucose 125 H mg/dl (65-105) Patient hx anesthesia problems: none Family hx anesthesia problems: none Results Review: All pre-operative results and documents have been reviewed as part of the pre-operative evaluation. [facility] Past Medical History Medical History (Updated 06/29/23 @ 08:22 by Dorcas Rosales APRN) Aortic stenosis Asthma Atrophy of liver Cataracts, bilateral CKD (chronic kidney disease) stage 4, GFR 15-29 ml/min Decreased appetite Diabetes Elevated liver enzymes Essential (primary) hypertension Gallstones Gout Hx of duodenal ulcer IPMN (intraductal papillary mucinous neoplasm) Mixed hyperlipidemia Obesity SAMRA on CPAP Osteoarthritis of right shoulder Pancreas cyst Pancreatic lesion Thrombocytopenia Vitiligo Surgical History Surgical History (Updated 06/10/23 @ 16:24 by Dorcas Rosales APRN) History of lithotripsy Kidney transplant recipient Status post total replacement of right shoulder (~08/22/19) Anatomic Family History Family History Father Hypertension Dementia Parkinsons disease TIA (transient ischemic attack) Stomach ulcer Sibling Breast cancer Sister and maternal aunt Other Carcinoma of colon Uncle with colon cancer Social History Social History Social History: Primary care physician: Dr. 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
--- NOTE | 2023-07-21 08:10 | PM.HPGS ---
History of Present Illness History of Present Illness Consent: Risks, benefits, and alternatives have been discussed and questions answered. Patient agrees to proceed with procedure. Chief complaint: epigastric pain, anorexia Narrative: Sundeep Coy is a 72 year old male here for egd, had intermittent epigastric pain, using pantoprazole- history of duodenal ulcer and previous kidney transplant. Recent MRCP showed pancreatic cyst and he is to get EUS at [facility] soon Review of Systems Constitutional: Constitutional: Denies headache(s) and Denies weakness Eyes: Eyes: Denies blurry vision ENT: Reports Normal hearing present, Denies headache(s) and Denies neck pain Cardiovascular: Cardiovascular: Denies chest pain and Denies dyspnea Respiratory: Respiratory: Denies dyspnea Gastrointestinal: Gastrointestinal: Reports no additional gastrointestinal complaints Genitourinary: Genitourinary: Denies dysuria Musculoskeletal: Musculoskeletal: Denies neck pain Integumentary/Breasts: Skin/Breast: Denies dry skin Neurologic: Reports Normal hearing present, Denies headache(s) and Denies weakness Psychiatric: Psychiatric: Denies anxiety Endocrine: Endocrine: Denies change in body appearance Hematologic/Lymphatic: Hematologic/Lymphatic: Denies easy bleeding Allergic/Immunologic: Allergic/Immunologic: Denies urticaria PMFSH Past Medical History Medical History (Updated 06/29/23 @ 08:22 by Dorcas Rosales APRN) Aortic stenosis Asthma Atrophy of liver Cataracts, bilateral CKD (chronic kidney disease) stage 4, GFR 15-29 ml/min Decreased appetite Diabetes Elevated liver enzymes Essential (primary) hypertension Gallstones Gout Hx of duodenal ulcer IPMN (intraductal papillary mucinous neoplasm) Mixed hyperlipidemia Obesity SAMRA on CPAP Osteoarthritis of right shoulder Pancreas cyst Pancreatic lesion Thrombocytopenia Vitiligo Surgical History Surgical History (Updated 06/10/23 @ 16:24 by Dorcas Rosales APRN) History of lithotripsy Kidney transplant recipient Status post total replacement of right shoulder (~08/22/19) Anatomic Family History Family History Father Hypertension Dementia Parkinsons disease TIA (transient ischemic attack) Stomach ulcer Sibling Breast cancer Sister and maternal aunt Other Carcinoma of colon Uncle with colon cancer Social History Social History Social History: Primary care physician: Dr. 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 release 24 hr nifedipine 60 mg tablet,extended 60 mg PO DAILY 06/12/19 06/30/23 History release trazodone 50 mg tablet 50 mg PO HS 06/12/19 06/30/23 History ascorbic acid (vitamin C) 500 mg 500 mg PO DAILY 07/21/19 06/30/23 History tablet cetirizine 10 mg tablet 10 mg PO DAILY 07/21/19 06/30/23 History [id number]-kb-wrynt 300 mcg-K 60 1 tablet PO DAILY 07/21/19 06/30/23 History mcg-lycop 600 mcg-lutein 300 mcg tablet (Centrum Silver Men) cholecalciferol (vitamin D3) 125 125 mcg PO DAILY 04/30/20 06/30/23 History mcg (5,000 unit) tablet (Vitamin D3) levothyroxine 75 mcg tablet 75 mcg PO DAILY 04/30/20 06/30/23 History aspirin 81 mg tablet,delayed 81 mg PO DAILY 06/30/23 06/30/23 History release
[2023-07-21 08:24] VITALS: BP 136/65; PULSE 51; RESP 21; O2SAT 96
[2023-07-21 08:34] VITALS: BP 133/72; PULSE 55; RESP 23; O2SAT 97
[2023-07-21 08:42] LABS: Glucose Point of Care 117 mg/dl (65-105)
[2023-07-21 08:44] VITALS: BP 151/79; PULSE 53; RESP 21; O2SAT 98
== END 2023-07-21 08:54 | disposition home or self-care (01) ==
PROVIDERS: PCP Internal Medicine; Visit Provider Internal Medicine Gastroenterology
PROC: 0DJ08ZZ Inspection of Upper Intestinal Tract, Via Natural or Artificial Opening Endoscopic (ICD-10-PCS; CPT 43235; principal; 2023-07-21 08:30)
DX: K29.50 Unspecified chronic gastritis without bleeding (principal); K31.84 Gastroparesis; K86.2 Cyst of pancreas; Z87.11 Personal history of peptic ulcer disease; I12.9 Hypertensive chronic kidney disease with stage 1 through stage 4 chronic kidney disease, or unspecified chronic kidney disease; E11.22 Type 2 diabetes mellitus with diabetic chronic kidney disease; N18.4 Chronic kidney disease, stage 4 (severe); E78.2 Mixed hyperlipidemia; G47.33 Obstructive sleep apnea (adult) (pediatric); Z94.0 Kidney transplant status; Z79.82 Long term (current) use of aspirin; Z79.621 Long term (current) use of calcineurin inhibitor
CPT/HCPCS: 43239; 82948; 88305; J2704; J7120

== ENCOUNTER 2023-08-10 08:13 | Outpatient (CLI) | payer MEDICARE, SELFPAY ==
--- NOTE | ~2023-08-10 | NM_ITS ---
EXAM: NM gastric emptying study DATE: 08/10/2023 13:06 INDICATION: Other diseases of stomach and duodenum TECHNIQUE: A gastric emptying study was performed using the methodology of Dior TENORIO, et al. J Nucl Med 2007; 48:568-572. The patient was given a meal consisting of 2 scrambled eggs labeled with 0.983 mCi Tc-99m sulfur colloid, 2 slices of toast, two packages of jam, and approximately 120 mL of water . Simultaneous anterior and posterior 1-min images of the abdomen were obtained with the patient supi ne at multiple time points over a total period of 4 hours. The geometric mean of anterior and posteri or views was determined, and the percentage retention was calculated for each time point. COMPARISON: None. FINDINGS: Gastric retention of the radiotracer-labeled meal was 57%, 34%, and 11% at the 1-hour, 2-hour, and 4- hour time points, respectively. With this technique, apparent rapid gastric emptying is suggested by <30% gastric retention at 1 hour. Delayed gastric emptying is defined by gastric retention of >90% at 1 hour, >60% retention at 2 hours, or >10% retention at 4 hours. IMPRESSION: 1. Mildly delayed gastric emptying. Reviewed, dictated and finalized at location A. BRATION LABORATORY TECHNICIAN
== END 2023-08-10 08:14 | disposition home or self-care (01) ==
PROVIDERS: PCP Internal Medicine; Visit Provider Nurse Practitioner
DX: K31.89 Other diseases of stomach and duodenum (principal)
CPT/HCPCS: 78264; A9541

== ENCOUNTER 2024-07-17 10:10 | Outpatient (CLI) | payer MEDICARE, SELFPAY ==
--- NOTE | ~2024-07-17 | MR_ITS ---
MRI of the lumbar spine Clinical History: Back pain Technique: Axial T2-weighted images, and sagittal T1-weighted, T2-weighted, and T2 fat-sat images wer e acquired. COMPARISON: 08/11/2018 Findings: There is no fracture or subluxation of the lumbar spine. Vertebral bodies maintain normal h eight and alignment. No suspicious bone marrow signal abnormality seen. At L1-L2, L2-L3, L3-L4, there is no disc bulge or herniation. There are mild to moderate facet joint changes at these levels. No spinal canal stenosis or neural foraminal narrowing at these levels. At L4-L5, there is mild disc desiccation with minimal disc bulge and moderate to advanced facet arthr opathy. No leonid central canal stenosis. There is moderate left neural foraminal narrowing. There is minimal right neural foraminal narrowing. At L5-S1, there is mild degenerative disc narrowing. There is mild diffuse disc bulge with central hough perimposed disc protrusion, similar to prior exam. There is minimal central canal stenosis. There is moderate facet arthropathy. There is mild bilateral neural foraminal narrowing. Paravertebral soft tissues are unremarkable. Kidneys are atrophic. Impression: Mild to [id number] degenerative spondylosis overall, as detailed above, similar to prior exam. Reviewed, dictated and finalized at location . D CARE COUNSELOR Impression: Mild to [id number] degenerative spondylosis overall, as detailed above, s imilar to prior exam.
== END 2024-07-17 10:11 | disposition home or self-care (01) ==
LOC: GOSHIMG 10:11
PROVIDERS: PCP Orthopaedic Surgery Orthopaedic Surgery of the Spine; Visit Provider Orthopaedic Surgery Orthopaedic Surgery of the Spine
DX: M47.817 Spondylosis without myelopathy or radiculopathy, lumbosacral region (principal)
CPT/HCPCS: 72148